=== PATIENT | male | born 1995 | race Caucasian/White ===

== ENCOUNTER 2018-06-15 12:08 | Observation (INO) | payer MEDICAID, OTHER ==
[2018-06-15] MEDS ORDERED: Sodium Chloride 0.9% 1,000 ML IV STA (13:05)
[2018-06-15 14:36] LABS: ALB/GLOB RATIO 1.6 (1.1-1.8); ALBUMIN 4.7 g/dL (3.0-4.8); ALT/SGPT 19 U/L (7-56); AST/SGOT 20 U/L (17-59); BLOOD UREA NITROGEN 15 mg/dL (7-21); CALCIUM 9.5 mg/dL (8.4-10.5); GFR NON-AFRICAN AMERICAN > 60; LIPASE 747 U/L (23-300)
[2018-06-15 14:43] LABS: BASO # 0.01 K/mm3 (0.0-2.0); BASO % 0.1 % (0.0-3.0); EOS % 0.1 % (1.5-5.0); GRAN % 90.7 % (50.0-68.0); HEMOGLOBIN 13.2 g/dL (14.0-18.0); LYMPH % 5.3 % (22.0-35.0); MEAN CELL VOLUME 59.8 fl (80.0-105.0); MEAN CORPUSCULAR HEMOGLOBIN 19.6 pg (25.0-35.0); MEAN CORPUSCULAR HGB CONC 32.8 g/dl (31.0-37.0); MONO # 0.7 (0.1-0.6); MONO % 3.8 % (1.0-6.0); PLATELET COUNT 178 10^3/uL (120.0-450.0); RBC 6.72 10^6/uL (3.5-6.1); RED CELL DISTRIBUTION WIDTH 16.4 % (11.5-14.5); WHITE BLOOD COUNT 18.9 10^3/ul (4.5-11.0)
--- NOTE | 2018-06-15 15:04 | ED PDOC ---
Arrival/HPI - General Chief Complaint: Abdominal Pain Time Seen by Provider: 06/15/18 13:05 Historian: Patient - History of Present Illness Narrative History of Present Illness (Text): 06/15/18 15:49 22-year-old male presents today with upper abdominal pain and nausea and vomiting that started this morning. Patient states he is having severe upper abdominal pain with associated nausea for the early portion in the morning and then developed multiple episodes of vomiting. pt denies cp or sob. no dizziness , but states he feels weak today. pt denies back pain. no urinary symptoms. no other complaints. Symptom Onset: Sudden Symptom Course: Unchanged Past Medical History - Provider Review Nursing Documentation Reviewed: Yes - Travel History Have you recently traveled outside [place] w/in the past 3 mons?: No - Cardiac Hx Cardiac Disorders: No - Pulmonary Hx Respiratory Disorders: No - Neurological Hx Neurological Disorder: No - HEENT Hx HEENT Disorder: No - Renal Hx Renal Disorder: No - Endocrine/Metabolic Hx Endocrine Disorders: No - Hematological/Oncological Hx Blood Disorders: No - Integumentary Hx Dermatological Disorder: No - Musculoskeletal/Rheumatological Hx Musculoskeletal Disorders: No - Gastrointestinal Hx Gastrointestinal Disorders: No - Genitourinary/Gynecological Hx Genitourinary Disorders: No - Psychiatric Hx Anxiety: Yes Hx Substance Use: Yes (Marijuana) - Surgical History Other/Comment: Left knee. Right hand Family/Social History - Physician Review Nursing Documentation Reviewed: Yes Family/Social History: Unknown Family HX Smoking Status: Never Smoked Hx Alcohol Use: Yes Frequency of alcohol use: Socially Hx Substance Use: Yes (Marijuana) Allergies/Home Meds Allergies/Adverse Reactions: Allergies Penicillins Allergy (Verified 06/15/18 12:44) FATIGUE Home Medications: Home Meds Medication Instructions Recorded Confirmed No Known Home Med 06/15/18 06/15/18 Review of Systems - Review of Systems Constitutional: Fatigue. absent: Fevers Respiratory: absent: SOB, Cough Cardiovascular: absent: Chest Pain, Palpitations Gastrointestinal: Abdominal Pain, Nausea, Vomiting. absent: Constipation Genitourinary Male: absent: Dysuria, Frequency, Hematuria Musculoskeletal: absent: Arthralgias, Back Pain, Neck Pain Skin: absent: Rash, Pruritis Neurological: absent: Headache, Dizziness Psychiatric: absent: Anxiety, Depression, Suicidal Ideation Physical Exam Vital Signs Reviewed: Yes Vital Signs Temp Pulse Resp BP Pulse Ox 06/15/18 19:12 85 18 131/71 98 06/15/18 16:09 72 18 131/79 99 06/15/18 12:45 97.9 F 78 18 137/85 98 Temperature: Afebrile Blood Pressure: Normal Pulse: Regular Respiratory Rate: Normal Appearance: Positive for: Well-Appearing, Non-Toxic, Comfortable Pain Distress: None Mental Status: Positive for: Alert and Oriented X 3 - Systems Exam Head: Present: Atraumatic Mouth: Present: Moist Mucous Membranes Neck: Present: Normal Range of Motion Respiratory/Chest: Present: Clear to Auscultation, Good Air Exchange. No: Respiratory Distress, Accessory Muscle Use Cardiovascular: Present: Regular Rate and Rhythm, Normal S1, S2. No: Murmurs Abdomen: Present: Tenderness (ruq, epigastric tenderness). No: Distention, Peritoneal Signs, Rebound, Guarding Back: Present: Normal Inspection. No: Midline Tenderness, Paraspinal Tenderness Upper Extremity: Present: Normal ROM Lower Extremity: Present: Normal ROM Neurological: Present: GCS=15, Speech Normal Skin: Present: Warm, Dry, Normal Color. No: Rashes Psychiatric: Present: Alert, Oriented x 3 Medical Decision Making ED Course and Treatment: 06/15/18 17:04 Patient is nontoxic well appearing with stable vital signs presenting with abdominal pain, nausea/vomiting. CBC wbc; 18.9 CMP wnl Lipase elevated Urinalysis wnl cxr; wnl UDS: + marijuana Ultrasound: FINDINGS: LIVER: Measures 13.2 cm. There is diffuse increased echogenicity and coarse echotexture of the liver parenchyma. No mass. No intrahepatic bile duct dilatation. GALLBLADDER: There are no gallstones, wall thickening or pericholecystic fluid. The sonographic Maciel's sign is negative. COMMON BILE DUCT: Measures 3.1 mm. No stones. No dilatation. PANCREAS: Unremarkable as visualized. No mass. No ductal dilatation. RIGHT KIDNEY: Measures 11.3cm. Normal echogenicity. No calculus, mass, or hydronephrosis. LEFT KIDNEY: Measures 10.9cm. Normal echogenicity. No calculus, mass, or hydronephrosis. SPLEEN: There is borderline splenomegaly. No mass. AORTA: No aneurysmal dilatation. IVC: Unremarkable. OTHER FINDINGS: There is trace perihepatic ascites. IMPRESSION: Diffuse increased echogenicity and coarse echotexture in the liver may reflect hepatic steatosis however parenchymal infectious/ inflammatory etiologies cannot be entirely excluded. Clinical and laboratory correlation is advised. Borderline splenomegaly. Trace perihepatic ascites is of uncertain etiology. If clinically indicated, CT scan with intravenous contrast may be performed for further evaluation. CAT scan:FINDINGS: LOWER THORAX: No visible consolidation, pleural effusion, or pneumothorax. LIVER: Unremarkable. GALLBLADDER AND BILE DUCTS: Unremarkable. PANCREAS: Unremarkable. SPLEEN: Borderline splenomegaly. ADRENALS: Unremarkable. KIDNEYS AND URETERS: The kidneys enhance symmetrically. No hydronephrosis or obstructing calculus identified. VASCULATURE: No aortic aneurysm. BOWEL: Stomach is nondistended. Lack of oral contrast limits evaluation for bowel pathology. Bowel loops appear within normal limits of caliber without evidence of obstruction. APPENDIX: The appendix appears within normal limits of caliber. No secondary signs of acute appendicitis. PERITONEUM: No significant free fluid. No definite free air. LYMPH NODES: No bulky adenopathy identified. BLADDER: Unremarkable. REPRODUCTIVE: Unremarkable. BONES: Sclerotic focus within the right femoral head, possibly bone island. No acute osseous abnormality is detected. OTHER FINDINGS: None. IMPRESSION: Borderline splenomegaly. Patient reassessment:pt feeling better. still with slight tenderness across upper abdomen. Discussed all results with patient in depth case discussed with dr. lugo; accepts observational status admission for abdominal pain, leukocytosis and elevated lipase with US finding of perihepatic ascites. Impression: Abdominal pain, leukocytosis, elevated lipase admit observational status Reassessment Condition: Re-examined, Improving,but remains with symptoms - Lab Interpretations Lab Results: 06/15/18 14:15 06/15/18 14:15 Lab Results 06/15/18 18:25: Urine Opiates Screen Negative, Urine Methadone Screen Negative, Ur Barbiturates Screen Negative, Ur Phencyclidine Scrn Negative, Ur Amphetamines Screen Negative, U Benzodiazepines Scrn Negative, U Oth Cocaine Metabols Negative, U Cannabinoids Screen Positive H 06/15/18 18:25: Urine Color Yellow, Urine Appearance Clear, Urine pH 6.0, Ur Specific Crawford 1.010, Urine Protein Negative, Urine Glucose (UA) Negative, Urine Ketones Trace H, Urine Blood Negative, Urine Nitrate Negative, Urine Bilirubin Negative, Urine Urobilinogen 0.2, Ur Leukocyte Esterase Negative 06/15/18 14:15: WBC 18.9 H, RBC 6.72 H, Hgb 13.2 L, Hct 40.2 L, MCV 59.8 L, MCH 19.6 L, MCHC 32.8, RDW 16.4 H, Plt Count 178, Gran % 90.7 H, Lymph % (Auto) 5.3 L, [place] % (Auto) 3.8, Eos % (Auto) 0.1 L, Baso % (Auto) 0.1, Gran # 17.20 H, Lymph # (Auto) 1.0 L, [place] # (Auto) 0.7 H, Eos # (Auto) 0.0, Baso # (Auto) 0.01 , Neutrophils % (Manual) 90 H, Lymphocytes % (Manual) 5 L, Monocytes % (Manual) 5, Platelet Evaluation Normal, Hypochromasia 1+, Microcytosis (manual) 1+ 06/15/18 14:15: Sodium 143, Potassium 4.1, Chloride 105, Carbon Dioxide 25, Anion Gap 18, BUN 15, Creatinine 0.7 L, Est GFR ( Amer) > 60, Est GFR ( Non-Af Amer) > 60, Random Glucose 92, Calcium 9.5, Total Bilirubin 1.4 H, AST 20 , ALT 19, Alkaline Phosphatase 58, Total Protein 7.6, Albumin 4.7, Globulin 3.0 , Albumin/Globulin Ratio 1.6, Lipase 747 H - RAD Interpretation Radiology Orders: 06/15/18 13:52 ABD & PELVIS IV CONTRAST ONLY [CT] Stat 06/15/18 15:48 ABDOMEN COMPLETE [US] Stat 06/15/18 18:23 CHEST PORTABLE [RAD] Stat - Medication Orders Current Medication Orders: Discontinued Medications Famotidine (Pepcid) 20 mg IVP STAT STA Stop: 06/15/18 13:55 Last Admin: 06/15/18 14:25 Dose: 20 mg IVP Administration Document 06/15/18 14:25 EAR (Rec: 06/15/18 14:25 EAR [id number]) Charges for Administration # of IVP Administrations 1 Sodium Chloride (Sodium Chloride 0.9%) 1,000 mls @ 999 mls/hr IV .Q1H1M STA Stop: 06/15/18 14:05 Last Admin: 06/15/18 14:22 Dose: 999 mls/hr eMAR Start Stop Document 06/15/18 14:22 EAR (Rec: 06/15/18 14:22 [facility] [place] [id number]) Intravenous Solution Start Date 06/15/18 Start Time 14:15 End Date 06/15/18 End time 15:15 Total Infusion Time 60 Ondansetron HCl (Zofran Inj) 4 mg IVP STAT STA Stop: 06/15/18 13:55 Last Admin: 06/15/18 14:25 Dose: 4 mg IVP Administration Document 06/15/18 14:25 [facility] [place] (Rec: 06/15/18 14:25 [id number] Charges for Administration # of IVP Administrations 1 Disposition/Present on Arrival - Present on Arrival Any Indicators Present on Arrival: No History of DVT/PE: No History of Uncontrolled Diabetes: No Urinary Catheter: No History of Decub. Ulcer: No History Surgical Site Infection Following: None - Disposition Have Diagnosis and Disposition been Completed?: Yes Diagnosis: Abdominal pain, Leukocytosis, Elevated lipase Disposition: HOSPITALIZED Disposition Time: 17:00 Patient Plan: Observation Condition: FAIR Forms: Business e via [place] (Thai)
[2018-06-15 15:20] LABS: LYMPHOCYTE 5 % (22.0-35.0); MONOCYTE 5 % (1.0-6.0); NEUTROPHIL 90 % (50.0-70.0)
[2018-06-15 15:21] LABS: HYPOCHROMIA 1+; MICROCYTOSIS 1+; PLATELET ESTIMATE NORMAL (NORMAL)
[2018-06-15] MEDS ORDERED: Iohexol 350 MG/100 ML VIAL ONE (16:15)
--- NOTE | 2018-06-15 16:52 | US ---
Date of service: 06/15/2018 HISTORY: Abdominal pain COMPARISON: None. TECHNIQUE: Grayscale imaging was performed. FINDINGS: LIVER: Measures 13.2 cm. There is diffuse increased echogenicity and coarse echotexture of the liver parenchyma. No mass. No intrahepatic bile duct dilatation. GALLBLADDER: There are no gallstones, wall thickening or pericholecystic fluid. The sonographic Maciel's sign is negative. COMMON BILE DUCT: Measures 3.1 mm. No stones. No dilatation. PANCREAS: Unremarkable as visualized. No mass. No ductal dilatation. RIGHT KIDNEY: Measures 11.3cm. Normal echogenicity. No calculus, mass, or hydronephrosis. LEFT KIDNEY: Measures 10.9cm. Normal echogenicity. No calculus, mass, or hydronephrosis. SPLEEN: There is borderline splenomegaly. No mass. AORTA: No aneurysmal dilatation. IVC: Unremarkable. OTHER FINDINGS: There is trace perihepatic ascites. IMPRESSION: Diffuse increased echogenicity and coarse echotexture in the liver may reflect hepatic steatosis however parenchymal infectious/ inflammatory etiologies cannot be entirely excluded. Clinical and laboratory correlation is advised. Borderline splenomegaly. Trace perihepatic ascites is of uncertain etiology. If clinically indicated, CT scan with intravenous contrast may be performed for further evaluation.
--- NOTE | 2018-06-15 17:34 | CT ---
Date of service: 06/15/2018 PROCEDURE: CT Abdomen and Pelvis with contrast HISTORY: abd pain COMPARISON: Abdominal ultrasound performed 06/15/18 TECHNIQUE: Contrast dose: 99 cc Omnipaque 350 Radiation dose: Total exam DLP = 390.81 mGy-cm. This CT exam was performed using one or more of the following dose reduction techniques: Automated exposure control, adjustment of the mA and/or kV according to patient size, and/or use of iterative reconstruction technique. FINDINGS: LOWER THORAX: No visible consolidation, pleural effusion, or pneumothorax. LIVER: Unremarkable. GALLBLADDER AND BILE DUCTS: Unremarkable. PANCREAS: Unremarkable. SPLEEN: Borderline splenomegaly. ADRENALS: Unremarkable. KIDNEYS AND URETERS: The kidneys enhance symmetrically. No hydronephrosis or obstructing calculus identified. VASCULATURE: No aortic aneurysm. BOWEL: Stomach is nondistended. Lack of oral contrast limits evaluation for bowel pathology. Bowel loops appear within normal limits of caliber without evidence of obstruction. APPENDIX: The appendix appears within normal limits of caliber. No secondary signs of acute appendicitis. PERITONEUM: No significant free fluid. No definite free air. LYMPH NODES: No bulky adenopathy identified. BLADDER: Unremarkable. REPRODUCTIVE: Unremarkable. BONES: Sclerotic focus within the right femoral head, possibly bone island. No acute osseous abnormality is detected. OTHER FINDINGS: None. IMPRESSION: Borderline splenomegaly.
[2018-06-15 18:51] LABS: URINE APPEARANCE CLEAR (CLEAR); URINE BILIRUBIN NEGATIVE (NEGATIVE); URINE BLOOD NEGATIVE (NEGATIVE); URINE COLOR YELLOW (YELLOW); URINE GLUCOSE (UA) NEGATIVE (NEGATIVE); URINE LEUKOCYTE ESTERASE NEGATIVE Leu/uL (NEGATIVE); URINE PROTEIN NEGATIVE mg/dL (<30 mg/dL); URINE UROBILINOGEN 0.2 E.U./dL (<1 E.U./dL)
[2018-06-15 19:00] LABS: BARBITURATES, UR NEGATIVE (NEGATIVE); BENZODIAZEPINES, UR NEGATIVE (NEGATIVE); OPIATES, UR NEGATIVE (NEGATIVE); PHENCYCLIDINE, UR NEGATIVE (NEGATIVE)
[2018-06-15 22:27] LABS: AMYLASE 364 U/L (35-125); HDL CHOLESTEROL 47 mg/dL (29-60)
[2018-06-15 22:38] LABS: LDL CHOLESTEROL 74 mg/dL (0-129)
--- NOTE | 2018-06-15 22:41 | CP.PCM.HP ---
History of Present Illness - History of Present Illness History of Present Illness: Mamadou Manrique, PGY-1, Internal Medicine History and Physical for Dr. Raza CC: multiple episodes of vomiting 22 year old male with past medical history of anxiety and panic attack presents with fatigue, chills, shortness of breath, and multiple episodes of vomiting. Patient reports that the night of 06/14, he felt fatigue, chills, and shortness of breath. Patient reports cough with green-yellow sputum. Patient did not take anything for these symptoms. Patient went to sleep and woke up the next morning without the prior symptoms. However, patient ended up having 5-6 episodes of yellow vomit relieved with zofran in the ED. Patient also reported epigastric, nonradiating, intermittent pulling abdominal pain that started when patient started vomiting. Pain is associated with episodes of vomiting. Patient reports having similar vomiting and abdominal pain when he had a panic attack in the past. Patient denies any barbecue, raw eggs, or raw seafood in his diet. He has not traveled outside the country in the recent past. 12-point ROS was negative except for what was mentioned above. PMH: anxiety, panic attacks PSH: pins in left femur, fractured right 5th metatarsal Allergies: penicillin FMHx: Mother: diabetes mellitus type II, Father: stroke, gout SHx: denies smoking or drinking history. Reports smoking marijuana daily PMD: denies Pharmacy: reports going to multiple pharmacies Insurance: denies Present on Admission - Present on Admission Any Indicators Present on Admission: No History of DVT/PE: No History of Uncontrolled Diabetes: No Review of Systems - Constitutional Constitutional: Chills, Fatigue. absent: Anorexia, Fever - EENT Eyes: absent: Blurred Vision Nose/Mouth/Throat: absent: Nasal Congestion - Cardiovascular Cardiovascular: Dyspnea. absent: Chest Pain, Chest Pain at Rest - Respiratory Respiratory: Dyspnea. absent: Cough - Gastrointestinal Gastrointestinal: Abdominal Pain, Nausea, Vomiting. absent: Constipation, Diarrhea - Genitourinary Genitourinary: absent: Dysuria, Hematuria - Musculoskeletal Musculoskeletal: absent: Arthralgias, Back Pain - Integumentary Integumentary: absent: Rash, Swelling - Neurological Neurological: absent: Numbness, Tingling, Tremor - Psychiatric Psychiatric: Anxiety Past Patient History - Past Social History Smoking Status: Never Smoked - CARDIAC Hx Cardiac Disorders: No - PULMONARY Hx Respiratory Disorders: No - NEUROLOGICAL Hx Neurological Disorder: No - HEENT Hx HEENT Problems: No - RENAL Hx Chronic Kidney Disease: No - ENDOCRINE/METABOLIC Hx Endocrine Disorders: No - HEMATOLOGICAL/ONCOLOGICAL Hx Blood Disorders: No - INTEGUMENTARY Hx Dermatological Problems: No - MUSCULOSKELETAL/RHEUMATOLOGICAL Hx Musculoskeletal Disorders: No - GASTROINTESTINAL Hx Gastrointestinal Disorders: No - GENITOURINARY/GYNECOLOGICAL Hx Genitourinary Disorders: No - PSYCHIATRIC Hx Anxiety: Yes Hx Substance Use: Yes (Marijuana) - SURGICAL HISTORY Other/Comment: Left knee. Right hand Meds Allergies/Adverse Reactions: Allergies Allergy/AdvReac Type Severity Reaction Status Date / Time Penicillins Allergy FATIGUE Verified 06/15/18 12:44 Physical Exam - Constitutional Appears: Well, Non-toxic, No Acute Distress - Head Exam Head Exam: ATRAUMATIC, NORMAL INSPECTION, NORMOCEPHALIC - Eye Exam Eye Exam: EOMI, PERRL - ENT Exam ENT Exam: Mucous Membranes Moist - Respiratory Exam Respiratory Exam: Clear to Auscultation Bilateral, NORMAL BREATHING PATTERN - Cardiovascular Exam Cardiovascular Exam: REGULAR RHYTHM, RRR - GI/Abdominal Exam GI & Abdominal Exam: Normal Bowel Sounds, Soft, Tenderness (epigastric) - Extremities Exam Extremities exam: Positive for: full ROM, normal inspection - Neurological Exam Neurological exam: Alert, CN II-XII Intact, Oriented x3 - Psychiatric Exam Psychiatric exam: Anxious Results - Vital Signs Recent Vital Signs: Last Vital Signs Temp 98.1 F 06/15/18 22:00 Pulse 68 06/15/18 22:00 Resp 20 06/15/18 22:00 BP 125/82 06/15/18 22:00 Pulse Ox 97 06/15/18 22:00 - Labs Result Diagrams: 06/15/18 14:15 06/15/18 14:15 Assessment & Plan - Assessment and Plan (Free Text) Assessment: 22 year old male with past medical history of anxiety and panic attack presents with fatigue, chills, shortness of breath, and multiple episodes of vomiting. Patient will be admitted for abdominal pain and leukocytosis 2/2 to hyperemesis cannabinoid syndrome vs. pancreatitis. Plan: Abdominal pain and vomiting 2/2 to hyperemesis gravidum vs. pancreatitis vs. panic attack vs. gastritis -CT abdomen: borderline splenomegaly -Abdominal U/S: Diffuse increased echogenicity and coarse echotexture in the liver may reflect hepatic steatosis however parenchymal infectious/ inflammatory etiologies cannot be entirely excluded. Clinical and laboratory correlation is advised. Borderline splenomegaly. Trace perihepatic ascites is of uncertain etiology. -UDS: cannabinoids positive -UA: trace ketones, LE negative, no blood -Lipase: 747 -Amylase: 364 -Normal LFTs. -Bilirubin: 1.4 -Hepatitis panel ordered. -Zofran 4 mg Q4PRN for nausea -Protonix 40 mg daily -NPO except meds. Will progress diet as tolerated -NS -GI, Dr. Odell, consulted for recommendations. -Patient has history of panic attacks but does not take any medication for anxiety. -Psych, Dr. Torres, consulted for recommendations. Leukocytosis 2/2 to infection vs. stress from symptoms -WBC: 18.9 -Chest X ray: no consolidations, no effusions, normal heart silhoutte as read by me -UA: trace ketones, LE negative, no blood -CT abdomen: borderline splenomegaly -Follow up WBC count in the AM. Microcytic Anemia -Hgb: 13.2 -Iron, ferritin, TIBC, Hgb electrophoresis. -GI, Dr. Odell, consulted for recommendations. Frontal Headache likely 2/2 tension headache -Motrin 400 mg Q6PRN for headache Substance Abuse -Patient reports daily marijuana use -Patient counseled regarding substance abuse and patient reported he understood. -Possible excessive marijuana use due to anxiety. -Psych, Dr. Torres, consulted for recommendations. DVT prophylaxis: SCD GI prophylaxis: protonix 40 daily Patient seen and assessed with Dr. Raza. - Date & Time Date: 06/15/18 Time: 23:26
[2018-06-15] MEDS: Sodium Chloride 0.9% 1,000 ML IV SCH (23:00)
[2018-06-16] MEDS ORDERED: Pneumococcal 23-Valent Vaccine IM ONE (00:45)
[2018-06-16 06:50] LABS: BILIRUBIN,DIRECT 0.1 mg/dL (0.0-0.4)
[2018-06-16 07:10] LABS: BASO # 0.03 K/mm3 (0.0-2.0); BASO % 0.3 % (0.0-3.0); EOS % 0.4 % (1.5-5.0); GRAN # 6.82 (1.4-6.5); GRAN % 73.3 % (50.0-68.0); HEMOGLOBIN 11.2 g/dL (14.0-18.0); LYMPH # 1.5 (1.2-3.4); LYMPH % 16.2 % (22.0-35.0); MEAN CELL VOLUME 59.8 fl (80.0-105.0); MEAN CORPUSCULAR HEMOGLOBIN 19.8 pg (25.0-35.0); MEAN CORPUSCULAR HGB CONC 33.1 g/dl (31.0-37.0); MONO # 0.9 (0.1-0.6); MONO % 9.8 % (1.0-6.0); PLATELET COUNT 161 10^3/uL (120.0-450.0); RBC 5.65 10^6/uL (3.5-6.1); RED CELL DISTRIBUTION WIDTH 16.1 % (11.5-14.5); WHITE BLOOD COUNT 9.3 10^3/ul (4.5-11.0)
[2018-06-16 07:16] LABS: IRON 49 ug/dL (45-180)
[2018-06-16 07:21] LABS: ALB/GLOB RATIO 1.5 (1.1-1.8); ALBUMIN 3.7 g/dL (3.0-4.8); ALT/SGPT 24 U/L (7-56); AST/SGOT 27 U/L (17-59); BLOOD UREA NITROGEN 13 mg/dL (7-21); CALCIUM 8.9 mg/dL (8.4-10.5); GFR NON-AFRICAN AMERICAN > 60
[2018-06-16 07:26] LABS: % IRON SATURATION 18 % (20-55); TOTAL IRON BINDING CAPACITY 268 ug/dL (261-462)
[2018-06-16 07:29] VITALS: BP 130/69; PULSE 87; RESP 20; TEMP 98; O2SAT 98
[2018-06-16] MEDS: Sodium Chloride 0.9% 1,000 ML IV SCH (09:00)
--- NOTE | 2018-06-16 09:33 | CP.PCM.CON ---
History of Present Illness - History of Present Illness History of Present Illness: PGY-4 GI Fellow Initial Consult Note Mr. Corona is a 22 yo M with h/o Anxiety, Panic attacks and MJ abuse presenting with nausea and vomiting. He states during day on 06/15 he had several episodes of nausea and vomiting consisting of PO intake described as yellow. After the onset of N/V, he states that he noticed a "pulling" mid epigastric pain that was worse with emesis episodes. This night prior he states he felt some chills and cough productive of yellow sputum. Furthermore, he states that he chronically smokes marijuana and that he has had at least one episode of this in the past that was attributed to a panic attack. States that he normally moves his bowels almost daily with formed brown stool. He denies any hematemesis, melena, hematochezia, dysphagia or weight loss. States that he has never had any EGD or Colonoscopy before. 12 point ROS negative other than stated above MHx: anxiety, panic attacks, MJ use SurgHx: Pins in left femur, fractured right 5th metatarsal Meds: None FamHx: Mother: diabetes mellitus type II, Father: stroke, gout SocHx: Denies smoking or drinking history. Reports smoking marijuana daily All: PCN Past Patient History - Past Social History Smoking Status: Never Smoked - CARDIAC Hx Cardiac Disorders: No - PULMONARY Hx Respiratory Disorders: No - NEUROLOGICAL Hx Neurological Disorder: No - HEENT Hx HEENT Problems: No - RENAL Hx Chronic Kidney Disease: No - ENDOCRINE/METABOLIC Hx Endocrine Disorders: No - HEMATOLOGICAL/ONCOLOGICAL Hx Blood Disorders: No - INTEGUMENTARY Hx Dermatological Problems: No - MUSCULOSKELETAL/RHEUMATOLOGICAL Hx Falls: No - GASTROINTESTINAL Hx Gastrointestinal Disorders: No - GENITOURINARY/GYNECOLOGICAL Hx Genitourinary Disorders: No - PSYCHIATRIC Hx Anxiety: Yes Other/Comment: cannibus daily - SURGICAL HISTORY Hx Surgeries: Yes Other/Comment: Left femur Sx with pins. factured right foot fx Meds Allergies/Adverse Reactions: Allergies Allergy/AdvReac Type Severity Reaction Status Date / Time Penicillins Allergy FATIGUE Verified 06/15/18 12:44 - Medications Medications: Current Medications Sodium Chloride (Sodium Chloride 0.9%) 1,000 mls @ 100 mls/hr IV .Q10H MARINO Last Admin: 06/15/18 23:00 Dose: 100 mls/hr Ibuprofen (Motrin Tab) 400 mg PO Q6H PRN PRN Reason: Headache Last Admin: 06/15/18 23:51 Dose: 400 mg Ondansetron HCl (Zofran Inj) 4 mg IVP Q4 MARINO Last Admin: 06/16/18 07:19 Dose: Not Given Pantoprazole Sodium (Protonix Inj) 40 mg IVP DAILY [facility] Physical Exam - Constitutional Appears: Well, Non-toxic, No Acute Distress - Head Exam Head Exam: ATRAUMATIC, NORMAL INSPECTION - Eye Exam Eye Exam: EOMI. absent: Conjunctival injection, Scleral icterus - ENT Exam ENT Exam: Mucous Membranes Moist. absent: Mucous Membranes Dry, Normal External Ear Exam - Respiratory Exam Respiratory Exam: Clear to Auscultation Bilateral, NORMAL BREATHING PATTERN. absent: Wheezes - Cardiovascular Exam Cardiovascular Exam: REGULAR RHYTHM, RRR - GI/Abdominal Exam GI & Abdominal Exam: Normal Bowel Sounds, Soft. absent: Bruit, Diminished Bowel Sounds, Distended, Firm, Guarding, Hernia, Hyperactive Bowel Sounds, Hypoactive Bowel Sounds, Organomegaly, Pulsatile Mass, Rigid, Tenderness - Rectal Exam Rectal Exam: Deferred - Extremities Exam Extremities exam: Positive for: normal inspection. Negative for: pedal edema - Neurological Exam Neurological exam: Alert, CN II-XII Intact, Oriented x3 - Psychiatric Exam Psychiatric exam: Normal Affect, Normal Mood - Skin Skin Exam: Normal Color, Warm Results - Vital Signs Recent Vital Signs: Last Vital Signs Temp 98 F 06/16/18 06:00 Pulse 87 06/16/18 06:00 Resp 20 06/16/18 06:00 BP 130/69 06/16/18 06:00 Pulse Ox 98 06/16/18 06:00 - Labs Result Diagrams: 06/16/18 06:30 06/16/18 06:30 Labs: Laboratory Results - last 24 hr 06/16/18 06/16/18 06/16/18 06:00 06:00 06:30 WBC RBC Hgb Hct MCV MCH MCHC RDW Plt Count Gran % Lymph % (Auto) [place] % (Auto) Eos % (Auto) Baso % (Auto) Gran # Lymph # (Auto) [place] # (Auto) Eos # (Auto) Baso # (Auto) Sodium 141 Potassium 3.7 Chloride 105 Carbon Dioxide 27 Anion Gap 13 BUN 13 Creatinine 0.8 Est GFR ( Amer) > 60 Est GFR (Non-Af Amer) > 60 Random Glucose 87 Calcium 8.9 Phosphorus 3.1 Magnesium 1.8 Iron 49 TIBC 268 % Saturation 18 L Total Bilirubin 1.2 1.2 Direct Bilirubin 0.1 AST 27 ALT 24 Alkaline Phosphatase 44 Total Protein 6.2 Albumin 3.7 Globulin 2.5 Albumin/Globulin Ratio 1.5 // 06:30 WBC 9.3 D RBC 5.65 Hgb 11.2 L D Hct 33.8 L MCV 59.8 L MCH 19.8 L MCHC 33.1 RDW 16.1 H Plt Count 161 Gran % 73.3 H Lymph % (Auto) 16.2 L [place] % (Auto) 9.8 H Eos % (Auto) 0.4 L Baso % (Auto) 0.3 Gran # 6.82 H Lymph # (Auto) 1.5 [place] # (Auto) 0.9 H Eos # (Auto) 0.0 Baso # (Auto) 0.03 Sodium Potassium Chloride Carbon Dioxide Anion Gap BUN Creatinine Est GFR ( Amer) Est GFR (Non-Af Amer) Random Glucose Calcium Phosphorus Magnesium Iron TIBC % Saturation Total Bilirubin Direct Bilirubin AST ALT Alkaline Phosphatase Total Protein Albumin Globulin Albumin/Globulin Ratio Assessment & Plan - Assessment and Plan (Free Text) Assessment: 22 yo Male with h/o Anx+Panic Attacks, MJ use presenting with n/v and abd pain. # N/V and Abd Pain: Perhaps related to cannabis hyperemesis syndrome, viral infection (reported URI symptoms prior), or related to panic attack as had symptoms prior. No lower GI complaints. Lipase elevation likely related to N/V , no signs of pancreatic inflammation and symptoms not consistent with pancreatitis. Nonetheless, treatment plan is the same. # Microcytic Anemia: Unclear etiology. No signs of active GI bleed. F/u Hgb Electropheresis, in negative can consider OP EGD # Hepatic Steatosis vs Parenchymal disease: Seen on US but not on CT, unclear if clinically significant. Agree with viral hep check. # Leukocytosis: 18 -> 9 without supportive care alone. Plan: - Supportive care - Advanced diet to regular as pt reports no further symptoms and feels hungry - F/u Hgb electrophoresis, consider OP EGD if w/u negative, no signs of GI bleed - F/u HCV Ab - Counseled on marijuana cessation Pt to be discussed with Dr. Odell; see his attestation for further recs/changes.
--- NOTE | 2018-06-16 10:27 | RAD ---
Date of service: 06/15/2018 HISTORY: Abdominal pain COMPARISON: No prior. FINDINGS: LUNGS: The lungs are well inflated and clear. PLEURA: No significant pleural effusion identified, no pneumothorax apparent. CARDIOVASCULAR: Normal. OSSEOUS STRUCTURES: No significant abnormalities. VISUALIZED UPPER ABDOMEN: Normal. OTHER FINDINGS: None. IMPRESSION: No active pulmonary disease.
[2018-06-16 11:23] LABS: HEPATITIS B SURFACE AG Negative (NEGATIVE)
[2018-06-16 11:28] LABS: HEPATITIS A IGM NEGATIVE (NEGATIVE); HEPATITIS B CORE AB NEGATIVE (NEGATIVE)
[2018-06-16 11:40] LABS: HEPATITIS C ANTIBODY NEGATIVE (NEGATIVE)
--- NOTE | 2018-06-16 14:30 | CARD ---
APPROVED REPORT Date of service: 06/15/2018 EKG Measurement Heart [id number] <Conclusion> Normal sinus rhythm Normal ECG
--- NOTE | 2018-06-16 14:31 | CP.PCM.DIS ---
<Niya Scales - Last Filed: 06/16/18 14:31> Provider - Provider Date of Admission: 06/15/18 20:33 Attending physician: Shameka Arciniega MD Consults: GI Psych Time Spent in preparation of Discharge (in minutes): 70 Hospital Course - Lab Results Lab Results: Most Recent Lab Values WBC 9.3 10^3/ul (4.5-11.0) D 06/16/18 06:30 RBC 5.65 10^6/uL (3.5-6.1) 06/16/18 06:30 Hgb 11.2 g/dL (14.0-18.0) L D 06/16/18 06:30 Hct 33.8 % (42.0-52.0) L 06/16/18 06:30 MCV 59.8 fl (80.0-105.0) L 06/16/18 06:30 MCH 19.8 pg (25.0-35.0) L 06/16/18 06:30 MCHC 33.1 g/dl (31.0-37.0) 06/16/18 06:30 RDW 16.1 % (11.5-14.5) H 06/16/18 06:30 Plt Count 161 10^3/uL (120.0-450.0) 06/16/18 06:30 Gran % 73.3 % (50.0-68.0) H 06/16/18 06:30 Lymph % (Auto) 16.2 % (22.0-35.0) L 06/16/18 06:30 [place] % (Auto) 9.8 % (1.0-6.0) H 06/16/18 06:30 Eos % (Auto) 0.4 % (1.5-5.0) L 06/16/18 06:30 Baso % (Auto) 0.3 % (0.0-3.0) 06/16/18 06:30 Gran # 6.82 (1.4-6.5) H 06/16/18 06:30 Lymph # (Auto) 1.5 (1.2-3.4) 06/16/18 06:30 [place] # (Auto) 0.9 (0.1-0.6) H 06/16/18 06:30 Eos # (Auto) 0.0 (0.0-0.7) 06/16/18 06:30 Baso # (Auto) 0.03 K/mm3 (0.0-2.0) 06/16/18 06:30 Neutrophils % (Manual) 90 % (50.0-70.0) H 06/15/18 14:15 Lymphocytes % (Manual) 5 % (22.0-35.0) L 06/15/18 14:15 Monocytes % (Manual) 5 % (1.0-6.0) 06/15/18 14:15 Platelet Evaluation Normal (NORMAL) 06/15/18 14:15 Hypochromasia 1+ 06/15/18 14:15 Microcytosis (manual) 1+ 06/15/18 14:15 Sodium 141 mmol/L (132-148) 06/16/18 06:30 Potassium 3.7 mmol/L (3.6-5.0) 06/16/18 06:30 Chloride 105 mmol/L (98-107) 06/16/18 06:30 Carbon Dioxide 27 mmol/L (21-33) 06/16/18 06:30 Anion Gap 13 (10-20) 06/16/18 06:30 BUN 13 mg/dL (7-21) 06/16/18 06:30 Creatinine 0.8 mg/dl (0.8-1.5) 06/16/18 06:30 Est GFR ( Amer) > 60 06/16/18 06:30 Est GFR (Non-Af Amer) > 60 06/16/18 06:30 Random Glucose 87 mg/dL (70-110) 06/16/18 06:30 Calcium 8.9 mg/dL (8.4-10.5) 06/16/18 06:30 Phosphorus 3.1 mg/dL (2.5-4.5) 06/16/18 06:30 Magnesium 1.8 mg/dL (1.7-2.2) 06/16/18 06:30 Iron 49 ug/dL (45-180) 06/16/18 06:00 TIBC 268 ug/dL (261-462) 06/16/18 06:00 % Saturation 18 % (20-55) L 06/16/18 06:00 Ferritin 123.0 ng/mL 06/16/18 06:00 Total Bilirubin 1.2 mg/dL (0.2-1.3) 06/16/18 06:30 Direct Bilirubin 0.1 mg/dL (0.0-0.4) 06/16/18 06:00 AST 27 U/L (17-59) 06/16/18 06:30 ALT 24 U/L (7-56) 06/16/18 06:30 Alkaline Phosphatase 44 U/L (38-126) 06/16/18 06:30 Total Protein 6.2 g/dL (5.8-8.3) 06/16/18 06:30 Albumin 3.7 g/dL (3.0-4.8) 06/16/18 06:30 Globulin 2.5 gm/dL 06/16/18 06:30 Albumin/Globulin Ratio 1.5 (1.1-1.8) 06/16/18 06:30 Triglycerides 83 mg/dL (35-160) 06/15/18 14:15 Cholesterol 141 mg/dL (130-200) 06/15/18 14:15 LDL Cholesterol Direct 74 mg/dL (0-129) 06/15/18 14:15 HDL Cholesterol 47 mg/dL (29-60) 06/15/18 14:15 Amylase 364 U/L (35-125) H 06/15/18 14:15 Lipase 747 U/L (23-300) H 06/15/18 14:15 TSH 3rd Generation 0.72 mIU/mL (0.46-4.68) 06/15/18 14:15 Urine Color Yellow (YELLOW) 06/15/18 18:25 Urine Appearance Clear (CLEAR) 06/15/18 18:25 Urine pH 6.0 (4.7-8.0) 06/15/18 18:25 Ur Specific [place] 1.010 (1.005-1.035) 06/15/18 18:25 Urine Protein Negative mg/dL (<30 mg/dL) 06/15/18 18:25 Urine Glucose (UA) Negative mg/dL (NEGATIVE) 06/15/18 18:25 Urine Ketones Trace mg/dL (NEGATIVE) H 06/15/18 18:25 Urine Blood Negative (NEGATIVE) 06/15/18 18:25 Urine Nitrate Negative (NEGATIVE) 06/15/18 18:25 Urine Bilirubin Negative (NEGATIVE) 06/15/18 18:25 Urine Urobilinogen 0.2 E.U./dL (<1 E.U./dL) 06/15/18 18:25 Ur Leukocyte Esterase Negative Evy/uL (NEGATIVE) 06/15/18 18:25 Urine Opiates Screen Negative (NEGATIVE) 06/15/18 18:25 Urine Methadone Screen Negative (NEGATIVE) 06/15/18 18:25 Ur Barbiturates Screen Negative (NEGATIVE) 06/15/18 18:25 Ur Phencyclidine Scrn Negative (NEGATIVE) 06/15/18 18:25 Ur Amphetamines Screen Negative (NEGATIVE) 06/15/18 18:25 U Benzodiazepines Scrn Negative (NEGATIVE) 06/15/18 18:25 U Oth Cocaine Metabols Negative (NEGATIVE) 06/15/18 18:25 U Cannabinoids Screen Positive (NEGATIVE) H 06/15/18 18:25 Hepatitis A IgM Ab Negative (NEGATIVE) 06/16/18 06:00 Hep Bs Antigen Negative (NEGATIVE) 06/16/18 06:00 Hep B Core IgM Ab Negative (NEGATIVE) 06/16/18 06:00 Hepatitis C Antibody Negative (NEGATIVE) 06/16/18 06:00 - Hospital Course Hospital Course: Mr. Corona is a 22 year old male with past medical history of anxiety and panic attack presents with fatigue, chills, shortness of breath, and multiple episodes of vomiting. Patient reports that the night of 06/14, he felt fatigue, chills, and shortness of breath. Patient reports cough with green-yellow sputum. Patient did not take anything for these symptoms. Patient went to sleep and woke up the next morning without the prior symptoms. However, patient ended up having 5-6 episodes of yellow vomit relieved with zofran in the ED. Patient also reported epigastric, nonradiating, intermittent pulling abdominal pain that started when patient started vomiting. Pain is associated with episodes of vomiting. Patient reports having similar vomiting and abdominal pain when he had a panic attack in the past. Patient denies any barbecue, raw eggs, or raw seafood in his diet. He has not traveled outside the country in the recent past. 12-point ROS was negative except for what was mentioned above. In the ED, pt received a CT abdomen/pelvis that showed borderline splenomegaly. Abd US showed diffuse increased echogenicity and coarse echotexture in the liver may reflect hepatic steatosis. WBC was 18.9. UDS was positive for cannabinoids. Pt was given zofran and kept NPO. Pt was admitted for r/o pancreatitis vs. cannabinoid hyperemesis. GI and Psych were consulted but did not see the patient before he signed out against medical advice. Upon admission, pt reported the nausea and vomiting subsided. He had no complaints. He requested to sign out against medical advice. Pt was advised to stay and complete the course of his hospital treatment, and the risks of leaving before completion were explained. Pt acknowledged the risks and benefits , and decided to leave against medical advice. Discharge Exam - Head Exam Head Exam: ATRAUMATIC, NORMAL INSPECTION, NORMOCEPHALIC - Eye Exam Eye Exam: Normal appearance, PERRL Pupil Exam: NORMAL ACCOMODATION - Respiratory Exam Respiratory Exam: Clear to PA & Lateral, NORMAL BREATHING PATTERN - Cardiovascular Exam Cardiovascular Exam: REGULAR RHYTHM, +S1, +S2 - GI/Abdominal Exam GI & Abdominal Exam: Normal Bowel Sounds, Soft. absent: Distended, Tenderness - Back Exam Back exam: NORMAL INSPECTION. absent: CVA tenderness (L), CVA tenderness (R) - Neurological Exam Neurological exam: Alert, Oriented x3 - Skin Skin Exam: Normal Color Discharge Plan - Follow Up Plan Condition: FAIR Disposition: AGAINST MEDICAL ADVICE <Deyanira Foreman R - Last Filed: 06/16/18 17:39> Provider - Provider Date of Admission: 06/15/18 20:33 Attending physician: Shameka Arciniega MD Hospital Course - Lab Results Lab Results: Most Recent Lab Values WBC 9.3 10^3/ul (4.5-11.0) D 06/16/18 06:30 RBC 5.65 10^6/uL (3.5-6.1) 06/16/18 06:30 Hgb 11.2 g/dL (14.0-18.0) L D 06/16/18 06:30 Hct 33.8 % (42.0-52.0) L 06/16/18 06:30 MCV 59.8 fl (80.0-105.0) L 06/16/18 06:30 MCH 19.8 pg (25.0-35.0) L 06/16/18 06:30 MCHC 33.1 g/dl (31.0-37.0) 06/16/18 06:30 RDW 16.1 % (11.5-14.5) H 06/16/18 06:30 Plt Count 161 10^3/uL (120.0-450.0) 06/16/18 06:30 Gran % 73.3 % (50.0-68.0) H 06/16/18 06:30 Lymph % (Auto) 16.2 % (22.0-35.0) L 06/16/18 06:30 [place] % (Auto) 9.8 % (1.0-6.0) H 06/16/18 06:30 Eos % (Auto) 0.4 % (1.5-5.0) L 06/16/18 06:30 Baso % (Auto) 0.3 % (0.0-3.0) 06/16/18 06:30 Gran # 6.82 (1.4-6.5) H 06/16/18 06:30 Lymph # (Auto) 1.5 (1.2-3.4) 06/16/18 06:30 [place] # (Auto) 0.9 (0.1-0.6) H 06/16/18 06:30 Eos # (Auto) 0.0 (0.0-0.7) 06/16/18 06:30 Baso # (Auto) 0.03 K/mm3 (0.0-2.0) 06/16/18 06:30 Neutrophils % (Manual) 90 % (50.0-70.0) H 06/15/18 14:15 Lymphocytes % (Manual) 5 % (22.0-35.0) L 06/15/18 14:15 Monocytes % (Manual) 5 % (1.0-6.0) 06/15/18 14:15 Platelet Evaluation Normal (NORMAL) 06/15/18 14:15 Hypochromasia 1+ 06/15/18 14:15 Microcytosis (manual) 1+ 06/15/18 14:15 Sodium 141 mmol/L (132-148) 06/16/18 06:30 Potassium 3.7 mmol/L (3.6-5.0) 06/16/18 06:30 Chloride 105 mmol/L (98-107) 06/16/18 06:30 Carbon Dioxide 27 mmol/L (21-33) 06/16/18 06:30 Anion Gap 13 (10-20) 06/16/18 06:30 BUN 13 mg/dL (7-21) 06/16/18 06:30 Creatinine 0.8 mg/dl (0.8-1.5) 06/16/18 06:30 Est GFR ( Amer) > 60 06/16/18 06:30 Est GFR (Non-Af Amer) > 60 06/16/18 06:30 Random Glucose 87 mg/dL (70-110) 06/16/18 06:30 Calcium 8.9 mg/dL (8.4-10.5) 06/16/18 06:30 Phosphorus 3.1 mg/dL (2.5-4.5) 06/16/18 06:30 Magnesium 1.8 mg/dL (1.7-2.2) 06/16/18 06:30 Iron 49 ug/dL (45-180) 06/16/18 06:00 TIBC 268 ug/dL (261-462) 06/16/18 06:00 % Saturation 18 % (20-55) L 06/16/18 06:00 Ferritin 123.0 ng/mL 06/16/18 06:00 Total Bilirubin 1.2 mg/dL (0.2-1.3) 06/16/18 06:30 Direct Bilirubin 0.1 mg/dL (0.0-0.4) 06/16/18 06:00 AST 27 U/L (17-59) 06/16/18 06:30 ALT 24 U/L (7-56) 06/16/18 06:30 Alkaline Phosphatase 44 U/L (38-126) 06/16/18 06:30 Total Protein 6.2 g/dL (5.8-8.3) 06/16/18 06:30 Albumin 3.7 g/dL (3.0-4.8) 06/16/18 06:30 Globulin 2.5 gm/dL 06/16/18 06:30 Albumin/Globulin Ratio 1.5 (1.1-1.8) 06/16/18 06:30 Triglycerides 83 mg/dL (35-160) 06/15/18 14:15 Cholesterol 141 mg/dL (130-200) 06/15/18 14:15 LDL Cholesterol Direct 74 mg/dL (0-129) 06/15/18 14:15 HDL Cholesterol 47 mg/dL (29-60) 06/15/18 14:15 Amylase 364 U/L (35-125) H 06/15/18 14:15 Lipase 747 U/L (23-300) H 06/15/18 14:15 TSH 3rd Generation 0.72 mIU/mL (0.46-4.68) 06/15/18 14:15 Urine Color Yellow (YELLOW) 06/15/18 18:25 Urine Appearance Clear (CLEAR) 06/15/18 18:25 Urine pH 6.0 (4.7-8.0) 06/15/18 18:25 Ur Specific [place] 1.010 (1.005-1.035) 06/15/18 18:25 Urine Protein Negative mg/dL (<30 mg/dL) 06/15/18 18:25 Urine Glucose (UA) Negative mg/dL (NEGATIVE) 06/15/18 18:25 Urine Ketones Trace mg/dL (NEGATIVE) H 06/15/18 18:25 Urine Blood Negative (NEGATIVE) 06/15/18 18:25 Urine Nitrate Negative (NEGATIVE) 06/15/18 18:25 Urine Bilirubin Negative (NEGATIVE) 06/15/18 18:25 Urine Urobilinogen 0.2 E.U./dL (<1 E.U./dL) 06/15/18 18:25 Ur Leukocyte Esterase Negative Evy/uL (NEGATIVE) 06/15/18 18:25 Urine Opiates Screen Negative (NEGATIVE) 06/15/18 18:25 Urine Methadone Screen Negative (NEGATIVE) 06/15/18 18:25 Ur Barbiturates Screen Negative (NEGATIVE) 06/15/18 18:25 Ur Phencyclidine Scrn Negative (NEGATIVE) 06/15/18 18:25 Ur Amphetamines Screen Negative (NEGATIVE) 06/15/18 18:25 U Benzodiazepines Scrn Negative (NEGATIVE) 06/15/18 18:25 U Oth Cocaine Metabols Negative (NEGATIVE) 06/15/18 18:25 U Cannabinoids Screen Positive (NEGATIVE) H 06/15/18 18:25 Hepatitis A IgM Ab Negative (NEGATIVE) 06/16/18 06:00 Hep Bs Antigen Negative (NEGATIVE) 06/16/18 06:00 Hep B Core IgM Ab Negative (NEGATIVE) 06/16/18 06:00 Hepatitis C Antibody Negative (NEGATIVE) 06/16/18 06:00 Attending/Attestation - Attestation I have personally seen and examined this patient.: Yes I have fully participated in the care of the patient.: Yes I have reviewed all pertinent clinical information, including history, physical exam and plan: Yes Notes (Text): Patient seen and examined by me with resident at 10AM. Case discussed with resident. Agree with above with following additions/corrections. Patient is a 22 year old male with past medical history significant for anxiety and panic attacks that presented to emergency room with multiple episodes of vomiting. Please see H&P for full details. Patient was admitted with abdominal pain and vomiting. CT abd/pelvis per radiologist showed borderline splenomegaly. Abdominal ultrasound per radiologist showed diffuse increased echogenicity and coarse echotexture in the liver, may reflect hepatic steatosis; however parenchymal infectious/ inflammatory etiologies cannot be entirely excluded; borderline splenomegaly; trace perihepatic ascited of uncertain etiology. Lipase and amylase elevated. UDS positive for cannabinoids. LFTS within normal limits. Patient was made NPO. Placed on IV fluids. GI was consulted. Psych was consulted for history of panic attacks and anxiety. Patient was also found to have leukocytosis on admission which resolved the following day. Patient was counseled on marijuana cessation. Today, patient was feeling much better. Wants to eat. Diet advanced. No abdominal pain. No nausea or vomiting. No chest pain or shortness of breath. No fevers or chills. No headaches or dizziness. No dysuria. No diarrhea or constipation. GI consult was pending when patient decided he wanted to sign out AMA Patient requested to sign out against medical advice. This action is against my medical advice to the patient and the decision was made with informed refusal. The patient was told that further workup is necessary and a full explanation of the rationale was given. The risks of leaving were explained to the patient and include but are not limited to increased morbidity and mortality, , and worsening of known or unknown conditions. Patient was AAO 3 was able to make this informed decision and understands the clinical situation and my explanation of the risks of leaving. Patient voluntarily accepts these risks and signed an AMA form. The patient was given a chance to ask questions and reconsider. He was encouraged to return to emergency room at any time for further care. Physical exam: Gen: Awake and alert sitting up in bed in no acute distress HEENT: Normocephalic, atraumatic. Extraocular muscles intact, pupils equal reactive. No scleral icterus. Oropharynx is pink and moist. No pharyngeal erythema or exudate appreciated. Neck is supple. Cardiovascular: Normal rhythm. Normal S1, S2. No murmurs, rubs, or gallops appreciated Pulmonary: Normal respiratory effort. No rhonchi, rales or wheezing appreciated. Gastrointestinal: Soft, nontender, nondistended, positive bowel sounds all 4 quadrants, no guarding. Musculoskeletal: Normal range of motion all extremities, no calf tenderness. No CVA tenderness. Central nervous system: AAO x 3. CN 2-12 grossly intact. Dermatologic: Skin warm and dry Please see chart for full details.
--- NOTE | 2018-06-18 08:11 | CON ---
Copied To: Yeimy Torres MD Attending MD: Yeimy Torres MD DATE: 06/16/2018 HISTORY OF PRESENT ILLNESS: The patient is a 22-year-old male with a history of anxiety and panic attacks. So, Psychiatry was consulted on the medical floor to evaluate for panic symptoms. I reviewed with the patient at bedside. The patient is alert and oriented x3 and he is fairly improved and he is generally cooperative and friendly during my questioning. The patient denies any kind of depression; however, reports a history of generalized anxiety disorder in which he stresses about everyday things frequently and has intrusive thoughts and worries about consequential things. The patient does feel that this worry does affect functioning at times. During his panic attack, the patient reports that he might have had one hospitalization. Presently he denies any recurrence of current symptoms with decreased shortness of breath, palpitation, tachycardia, nausea, and feeling unwell. The last attack was about 2 to 3 years ago and he generally controlled them according to him. It might be a major stressors at this time, he indicated that financially he is doing better. In general, he feels like he is functioning well. Regarding drug usage, he does smoke marijuana daily, which can also affect the patient's anxiety level as well, which the patient was counseled about coherent, he did not hallucinate, he denies any paranoia . Vital signs and labs were reviewed. MEDICATIONS: The patient is not on any relevant psychiatric medication. PSYCHIATRIC HISTORY: The patient reports seeing a psychiatrist many years ago when he was 12 years old because of hyperactivity, and the patient was given a diagnosis of attention deficit disorder. The patient does not recall the medications he tried in the past, but has not seen a psychiatrist or been on psychiatric medications for over 10 years. The patient denies any psychiatric hospitalizations, outpatient treatment, current psychiatric medications as noted. The patient denies any suicide attempt. SOCIAL HISTORY: The patient was born and raised in [place]. He is single. He has no children. He lives with his 28-year-old sister and 30-year-old sister. He graduate high school. Denies drinking. He smokes marijuana daily. He denies any illicit drug use. IMPRESSION: Generalized anxiety disorder as well as panic disorder without agoraphobia. RECOMMENDATIONS: I recommend Klonopin 0.25 mg daily p.r.n. for anxiety. The patient does not require psychiatric inpatient stabilization for his symptoms, and may be discharged AMA if her prefers, if he is psychiatrically cleared. He is not danger to himself or others in this respect. Please provide him a prescription for Klonopin 0.25 mg daily p.r.n. that we will hold until patient receives appropriate followup at either [facility] or [facility] here in the hospital. This curriculum writer will sign off at this time. Yeimy Torres MD
== END 2018-06-16 12:17 | disposition left against medical advice (07) ==
LOC: ED 12:08 → ERH 20:33 → 5RNO 21:47 → ERH 21:47
PROVIDERS: ADMIT Internal Medicine; ATTEND Internal Medicine
DX: K76.0 Fatty (change of) liver, not elsewhere classified (principal); F12.90 Cannabis use, unspecified, uncomplicated; R11.10 Vomiting, unspecified; F41.0 Panic disorder [episodic paroxysmal anxiety]; F41.1 Generalized anxiety disorder; D50.9 Iron deficiency anemia, unspecified; D72.829 Elevated white blood cell count, unspecified; F90.9 Attention-deficit hyperactivity disorder, unspecified type; Z87.81 Personal history of (healed) traumatic fracture; Z82.3 Family history of stroke; Z83.3 Family history of diabetes mellitus; Z88.0 Allergy status to penicillin
CPT/HCPCS: 36415; 71045; 74177; 76700; 80053; 80061; 80074; 81003; 82150; 82247; 82248; 82728; 83021; 83540; 83550; 83690; 83735; 84100; 84443; 85014; 85018; 85025; 85041; 87040; 93005; 96361; 96374; 96375; 96376; 99285; C9113; G0378; G0480; J2405; J7030; Q9967